=== PATIENT | female | born 1975 | race Caucasian/White ===

== ENCOUNTER 2017-03-09 16:25 | Outpatient (CLI) | payer OTHER, MEDICARE ==
[~2017-03-09] VITALS: Ht 180.3 cm; Wt 120.9 kg
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
[~2017-03-09 16:25] MED LIST: BENADRYL25 MG PO; DESYREL50 MG PO; FEOSOL325 MG PO; GLUCOPHAGE1000 MG PO; LATUDA80 MG PO; LIDEX 0.05% CRE30 GM TOP; MAG-OX-400(241400 MG PO; PRENATAL 1+1)(P1 TAB PO; TRULICITY1.5 MG/0.5 SUB-Q; VISTARIL50 MG PO; ZOLOFT100 MG PO
[2017-03-09] MEDS ORDERED: LEVOTHROID (SY88 MCG PO (17:17)
[2017-03-09] MEDS ORDERED: REGLAN10 MG PO (17:18)
[2017-03-09] MEDS ORDERED: LANTUS (IN100 UNIT/M SUB-Q ×2 (17:20→17:21)
[2017-03-09 17:54] LABS: BASOPHIL % 0.4 %; EOSINOPHIL % 0.4 %; HEMATOCRIT 31.7 % (33.0-46.0); HEMOGLOBIN 10.3 g/dL (10.0-15.0); IMMATURE GRANULOCYTE % 0.4 %; LYMPHOCYTE # 1.8 K/uL (0.8-4.0); LYMPHOCYTE % 22.4 %; MCH 26.5 pg (27.0-34.0); MCHC 32.5 gm/dL (32.0-36.5); MCV 81.5 fl (83.0-98.0); MONOCYTE # 0.3 K/uL (0.0-1.0); MONOCYTE % 3.2 %; MPV 10.5 fl (9.4-12.4); NEUTROPHIL % 73.2 %; NRBC % 0 /100WBC (0-0.00); PLATELET COUNT 226 K/uL (150-450); RBC 3.89 M/uL (3.50-5.50); WBC 8.2 K/uL (4.0-11.0)
[2017-03-09 18:13] LABS: ALBUMIN 2.6 gm/dL (3.5-5.0); ANION GAP 14.7 (10.0-19.0); CALCIUM 8.5 mg/dL (8.5-10.5); POTASSIUM 3.7 mMol/L (3.7-5.1); TOTAL PROTEIN 7.5 g/dL (6.0-8.4)
[2017-03-09 18:14] LABS: TOTAL BILIRUBIN 0.3 mg/dL (0.0-1.5)
[2017-03-10 05:23] LABS: BASOPHIL % 0.4 %; EOSINOPHIL % 0.5 %; HEMOGLOBIN 8.7 g/dL (10.0-15.0); IMMATURE GRANULOCYTE % 0.5 %; LYMPHOCYTE # 2.6 K/uL (0.8-4.0); LYMPHOCYTE % 32.7 %; MCH 26.6 pg (27.0-34.0); MCHC 32.2 gm/dL (32.0-36.5); MCV 82.6 fl (83.0-98.0); MONOCYTE # 0.4 K/uL (0.0-1.0); MONOCYTE % 4.6 %; MPV 10.1 fl (9.4-12.4); NEUTROPHIL # (ANC) 4.8 K/uL (1.8-7.8); NEUTROPHIL % 61.3 %; NRBC % 0 /100WBC (0-0.00); PLATELET COUNT 210 K/uL (150-450); RBC 3.27 M/uL (3.50-5.50); WBC 7.9 K/uL (4.0-11.0)
[2017-03-10 05:42] LABS: ALBUMIN 2.2 gm/dL (3.5-5.0); ANION GAP 14.6 (10.0-19.0); CALCIUM 8.3 mg/dL (8.5-10.5); CREATININE 0.9 mg/dL (0.5-1.1); POTASSIUM 3.6 mMol/L (3.7-5.1); TOTAL PROTEIN 6.2 g/dL (6.0-8.4)
[2017-03-10 05:43] LABS: TOTAL BILIRUBIN 0.2 mg/dL (0.0-1.5)
[2017-03-10] MEDS ORDERED: FEOSOL325 MG PO (13:55)
[2017-03-10] MEDS ORDERED: NOVOLOG100 UNIT/M SUB-Q (13:59)
[2017-03-10] MEDS ORDERED: Fioricet PO (14:03)
== END 2017-03-10 16:30 | disposition disaster alternative care site (69) ==
LOC: GOBM 16:25 → GOBS 16:25 → GOBM 03-10 16:30
PROVIDERS: Obstetrics & Gynecology
DX: O60.03 Preterm labor without delivery, third trimester (principal); F32.9 Major depressive disorder, single episode, unspecified; O24.913 Unspecified diabetes mellitus in pregnancy, third trimester; O99.213 Obesity complicating pregnancy, third trimester; O99.283 Endocrine, nutritional and metabolic diseases complicating pregnancy, third trimester; E03.9 Hypothyroidism, unspecified; F42.9 Obsessive-compulsive disorder, unspecified; F20.9 Schizophrenia, unspecified; O21.9 Vomiting of pregnancy, unspecified; Z3A.29 29 weeks gestation of pregnancy
CPT/HCPCS: G0463; J1885; J2001; J2765; J3105; J7120